=== PATIENT | female | born 1990 | race Caucasian/White ===

== ENCOUNTER → 2016-06-27 | Outpatient (CLI) | payer BC ==
[2016-06-27 15:07] LABS: BASO % 0.4 %; BASO ABS # 0.03 K/uL (0-0.2); COMPLETE YES; EOS % 1.7 %; HEMATOCRIT 38.3 % (37-47); IG% 0.1 %; LYMPH % 27.3 %; MEAN CELL VOLUME 81.3 fL (80-100); MEAN CORPUSCULAR HEMOGLOBIN 27.4 pg (25-34); MEAN CORPUSCULAR HGB CONC 33.7 g/dl (32-36); MEAN PLATELET VOLUME 11.1 fL (7.4-10.4); MONO % 6.9 %; NEUT % 63.6 %; PLATELET COUNT 304 K/uL (130-400); RED BLOOD COUNT 4.71 M/uL (4.2-5.4); WHITE BLOOD COUNT 7.69 K/uL (4.8-10.8)
[2016-06-27 15:16] LABS: BLOOD UREA NITROGEN 8 mg/dl (7-18); BUN/CREATININE RATIO 9.9 (10-20); CALCIUM 8.7 mg/dl (8.5-10.1); CARBON DIOXIDE 25 mmol/L (21-32); CHLORIDE 107 mmol/L (98-107); CREATININE 0.79 mg/dl (0.60-1.20); GLUCOSE 109 mg/dl (70-99); POTASSIUM 3.6 mmol/L (3.5-5.1); SODIUM 141 mmol/L (136-145)
== END | disposition home or self-care (01) ==
LOC: C.LABBC 10:27
PROVIDERS: ATTEND Orthopaedic Surgery Sports Medicine
DX: Z01.818 Encounter for other preprocedural examination (principal)

== ENCOUNTER → 2016-09-03 | Outpatient (CLI) | payer BC ==
[~2016-09-03] MED LIST: ATR25 PO; DIVA500T5 PO; NAPR1TAB9 PO; PROM12.57 PO; TRAM-10 PO; gabapentin PO
[2016-09-03 17:35] LABS: BASO % 0.3 %; BASO ABS # 0.03 K/uL (0-0.2); COMPLETE YES; EOS % 0.7 %; HEMATOCRIT 41.2 % (37-47); IG% 0.1 %; LYMPH % 25.9 %; LYMPH ABS # 2.45 K/uL (1.2-3.4); MEAN CELL VOLUME 83.7 fL (80-100); MEAN CORPUSCULAR HEMOGLOBIN 28.3 pg (25-34); MEAN CORPUSCULAR HGB CONC 33.7 g/dl (32-36); PLATELET COUNT 303 K/uL (130-400); RED BLOOD COUNT 4.92 M/uL (4.2-5.4); WHITE BLOOD COUNT 9.47 K/uL (4.8-10.8)
[2016-09-03 18:17] LABS: BLOOD UREA NITROGEN 5 mg/dl (7-18); CALCIUM 8.6 mg/dl (8.5-10.1); CARBON DIOXIDE 24 mmol/L (21-32); CHLORIDE 111 mmol/L (98-107); CREATININE 0.78 mg/dl (0.60-1.20); GLUCOSE 97 mg/dl (70-99); POTASSIUM 3.7 mmol/L (3.5-5.1); SODIUM 142 mmol/L (136-145)
== END | disposition home or self-care (01) ==
LOC: C.LAB1850 17:06
PROVIDERS: ATTEND Physician Assistant Medical
DX: R11.0 Nausea (principal); E01.0 Iodine-deficiency related diffuse (endemic) goiter; Z51.81 Encounter for therapeutic drug level monitoring; Z79.899 Other long term (current) drug therapy

== ENCOUNTER → 2016-09-04 | Outpatient (CLI) | payer BC ==
--- NOTE | 2016-09-04 12:46 | DIAGNOSTIC IMAGING REPORT ---
THYROID ULTRASOUND HISTORY: Enlarged thyroid gland. COMPARISON: None. FINDINGS: Right lobe: 5.4 x 1.4 x 2.4 cm. There are few small hypoechoic nodules/cysts measuring up to 4 mm. Left lobe: 4.4 x 1.0 x 1.5 cm. There are few small hypoechoic nodules/cysts measuring up to 4 mm. Isthmus: 2 mm in thickness. No nodules. IMPRESSION: A few small bilateral thyroid hypoechoic nodules/cysts measuring up to 4 mm. These do not meet sonographic criteria for biopsy. Electronically signed by: Anthony Knox M.D. 09/04/2016 12:44 PM Dictated Date/Time: 09/04/2016 12:43 PM
== END | disposition home or self-care (01) ==
LOC: C.ULTR 12:06
PROVIDERS: ATTEND Physician Assistant
DX: E01.0 Iodine-deficiency related diffuse (endemic) goiter (principal)

== ENCOUNTER → 2016-11-25 | Outpatient (CLI) | payer BC ==
--- NOTE | 2016-11-25 09:04 | DIAGNOSTIC IMAGING REPORT ---
RIGHT ANKLE MRI HISTORY: Right ankle pain. RT Ankle, achilles TENDONITIS Right TECHNIQUE: Multiplanar multisequence MRI of the right ankle was performed without contrast. COMPARISON STUDY: None. FINDINGS: Normal marrow signal intensity seen throughout the visualized osseous structures. No fracture or dislocation within the right ankle. The medial and lateral stabilizing ligaments are intact. The plantar fascia is within normal limits. The Achilles tendon, flexor tendons, and extensor tendons are normal in course, caliber, and signal intensity. There is question of mild thickening of the peroneus longus tendon at the tip of the lateral malleolus. This is best seen on axial image 23. This may represent a mild chronic tendinopathy. No abnormal signal. Trace subcutaneous edema along the lateral malleolus. The sinus tarsi appears intact. Cartilage spaces are maintained. No significant joint effusion. IMPRESSION: 1. Mild thickening of the peroneus longus tendon. This likely represents a mild chronic tendinopathy. 2. Normal Achilles tendon. 3. No fracture or dislocation. Electronically signed by: Anthony Knox M.D. 11/25/2016 9:03 AM Dictated Date/Time: 11/25/2016 8:56 AM
== END | disposition home or self-care (01) ==
LOC: C.MRI 08:21
PROVIDERS: ATTEND Podiatrist
DX: M76.61 Achilles tendinitis, right leg (principal)

== ENCOUNTER → 2016-12-29 | Outpatient (CLI) | payer BC ==
--- NOTE | 2016-12-29 16:05 | DIAGNOSTIC IMAGING REPORT ---
THREE-PHASE BONE SCAN OF THE FEET CLINICAL HISTORY: Right foot pain and. Evaluate for evidence of reflex sympathetic dystrophy. COMPARISON STUDY: MRI of the right ankle November 25, 2016. TECHNIQUE: 26.1 mCi of technetium 90 9M MDP was injected IV at 12:20 PM on December 29, 2016. Blood flow images were obtained medially following injection. Blood pool and delayed phase imaging was performed. FINDINGS: There is no evidence of hyperemia on this examination. Uptake within the ankles and feet is symmetric. No areas of abnormal radiotracer uptake are identified on this examination with the exception of mild uptake projecting over the right first metatarsophalangeal joint. There is no evidence for reflex sympathetic dystrophy. IMPRESSION: 1. No scintigraphic evidence for reflex sympathetic dystrophy. 2. Minimal radiotracer uptake projecting of the right first metatarsophalangeal joint which may be degenerative. Otherwise, unremarkable three-phase bone scan with no hyperemia. Electronically signed by: Gary Vidales M.D. 12/29/2016 4:03 PM Dictated Date/Time: 12/29/2016 4:00 PM
== END | disposition home or self-care (01) ==
LOC: C.NUCL 12:03
PROVIDERS: ATTEND Physical Medicine & Rehabilitation
DX: M79.671 Pain in right foot (principal)

== ENCOUNTER → 2017-01-01 | Outpatient (CLI) | payer BC ==
[2017-01-01 10:56] LABS: BASO % 0.4 %; BASO ABS # 0.03 K/uL (0-0.2); COMPLETE YES; EOS % 1.4 %; HEMATOCRIT 42.4 % (37-47); IG% 0.1 %; LYMPH ABS # 2.22 K/uL (1.2-3.4); MEAN CELL VOLUME 86.7 fL (80-100); MEAN CORPUSCULAR HEMOGLOBIN 27.6 pg (25-34); MEAN CORPUSCULAR HGB CONC 31.8 g/dl (32-36); MEAN PLATELET VOLUME 11.1 fL (7.4-10.4); MONO % 6.6 %; NEUT % 59.5 %; PLATELET COUNT 306 K/uL (130-400); RED BLOOD COUNT 4.89 M/uL (4.2-5.4); WHITE BLOOD COUNT 6.94 K/uL (4.8-10.8)
[2017-01-01 11:10] LABS: ESTIMATED AVERAGE GLUCOSE 97 mg/dl; HA1C FLAG Normal (Normal)
[2017-01-01 11:21] LABS: ALT/SGPT 13 U/L (12-78); BLOOD UREA NITROGEN 7 mg/dl (7-18); BUN/CREATININE RATIO 8.3 (10-20); CALCIUM 9.3 mg/dl (8.5-10.1); CARBON DIOXIDE 25 mmol/L (21-32); CHLORIDE 106 mmol/L (98-107); CHOLESTEROL 173 mg/dl (0-200); CREATININE 0.78 mg/dl (0.60-1.20); GLUCOSE 96 mg/dl (70-99); POTASSIUM 3.5 mmol/L (3.5-5.1); SODIUM 139 mmol/L (136-145)
[2017-01-01 11:30] LABS: ALB/GLOB RATIO 1.3 (0.9-2); ALKALINE PHOSPHATASE 54 U/L (45-117); AST/SGOT 13 U/L (15-37); CHOLESTEROL/HDL RATIO 2.4; HDL CHOLESTEROL 71 mg/dl; LDL CHOLESTEROL CALCULATED 81 mg/dl; TRIGLYCERIDES 107 mg/dl (0-150); VERY LOW DENSITY LIPOPROT CALC 21 mg/dl
== END | disposition home or self-care (01) ==
LOC: C.LABBC 08:34
PROVIDERS: ATTEND Physician Assistant
DX: Z51.81 Encounter for therapeutic drug level monitoring (principal); Z79.899 Other long term (current) drug therapy

== ENCOUNTER → 2017-05-22 | Outpatient (CLI) | payer BC ==
[2017-05-22 11:00] LABS: HEMATOCRIT 38.3 % (37-47); HEMOGLOBIN 12.9 g/dL (12.0-16.0); MEAN CELL VOLUME 86.1 fL (80-100); MEAN CORPUSCULAR HGB CONC 33.7 g/dl (32-36); PLATELET COUNT 220 K/uL (130-400); RED CELL DISTRIBUTION WIDTH CV 13.1 % (11.5-14.5); RED CELL DISTRIBUTION WIDTH SD 41.3 fL (36.4-46.3); WHITE BLOOD COUNT 8.32 K/uL (4.8-10.8)
[2017-05-22 11:13] LABS: ALBUMIN 3.5 gm/dl (3.4-5.0); ALT/SGPT 15 U/L (12-78); AST/SGOT 11 U/L (15-37); BLOOD UREA NITROGEN 13 mg/dl (7-18); CALCIUM 8.4 mg/dl (8.5-10.1); CARBON DIOXIDE 27 mmol/L (21-32); CREATININE 0.62 mg/dl (0.60-1.20); GLUCOSE 92 mg/dl (70-99); POTASSIUM 3.5 mmol/L (3.5-5.1); SODIUM 137 mmol/L (136-145)
[2017-05-22 11:15] LABS: ALKALINE PHOSPHATASE 39 U/L (45-117); TOTAL PROTEIN 6.2 gm/dl (6.4-8.2)
== END | disposition home or self-care (01) ==
LOC: C.LABBC 09:07
PROVIDERS: ATTEND Physician Assistant
DX: Z51.81 Encounter for therapeutic drug level monitoring (principal); Z79.899 Other long term (current) drug therapy

== ENCOUNTER → 2017-06-18 | Outpatient (CLI) | payer BC ==
--- NOTE | 2017-06-18 11:42 | DIAGNOSTIC IMAGING REPORT ---
CHEST 2 VIEWS ROUTINE HISTORY: Atypical chest pain. COMPARISON: None. FINDINGS: The lungs are clear. The heart is normal in size. No pleural effusions. No pneumothorax. No acute rib fractures. Minimal dextroscoliosis of the thoracic spine. IMPRESSION: No acute process. Electronically signed by: Anthony Knox M.D. 06/18/2017 11:41 AM Dictated Date/Time: 06/18/2017 11:39 AM
[2017-06-18 13:07] LABS: BASO % 0.5 %; BASO ABS # 0.03 K/uL (0-0.2); EOS % 0.8 %; EOS ABS # 0.05 K/uL (0-0.5); HEMATOCRIT 41.6 % (37-47); HEMOGLOBIN 13.8 g/dL (12.0-16.0); IG# 0.01 K/uL (0.00-0.02); LYMPH % 26.3 %; LYMPH ABS # 1.61 K/uL (1.2-3.4); MEAN CELL VOLUME 85.6 fL (80-100); MEAN CORPUSCULAR HEMOGLOBIN 28.4 pg (25-34); MEAN CORPUSCULAR HGB CONC 33.2 g/dl (32-36); MEAN PLATELET VOLUME 11.3 fL (7.4-10.4); MONO % 11.9 %; MONO ABS # 0.73 K/uL (0.11-0.59); NEUT % 60.3 %; NEUT ABS # 3.69 K/uL (1.4-6.5); PLATELET COUNT 225 K/uL (130-400); RED CELL DISTRIBUTION WIDTH CV 13.1 % (11.5-14.5); RED CELL DISTRIBUTION WIDTH SD 40.9 fL (36.4-46.3); WHITE BLOOD COUNT 6.12 K/uL (4.8-10.8)
[2017-06-18 16:47] LABS: ALBUMIN 3.5 gm/dl (3.4-5.0); ALT/SGPT 21 U/L (12-78); AST/SGOT 15 U/L (15-37); BLOOD UREA NITROGEN 13 mg/dl (7-18); CALCIUM 8.9 mg/dl (8.5-10.1); CARBON DIOXIDE 26 mmol/L (21-32); CREATININE 0.69 mg/dl (0.60-1.20); GLUCOSE 99 mg/dl (70-99); POTASSIUM 3.8 mmol/L (3.5-5.1); SODIUM 138 mmol/L (136-145)
[2017-06-18 16:50] LABS: ALKALINE PHOSPHATASE 52 U/L (45-117); TOTAL PROTEIN 6.8 gm/dl (6.4-8.2)
== END | disposition home or self-care (01) ==
LOC: C.RADBC 10:48
PROVIDERS: ATTEND Physician Assistant Medical
DX: Z79.899 Other long term (current) drug therapy (principal); R07.9 Chest pain, unspecified; R53.83 Other fatigue

== ENCOUNTER → 2017-07-29 | Outpatient (CLI) | payer BC ==
--- NOTE | 2017-07-29 09:46 | DIAGNOSTIC IMAGING REPORT ---
R HAND MIN 3 VIEWS ROUTINE HISTORY: 26 years-old Female M25.541 Joint pain in fingers of right [id number] acute right hand pain, most pronounced within the fourth and fifth metacarpals COMPARISON: None available TECHNIQUE: 3 views of the right hand FINDINGS: No acute fracture, dislocation or significant degenerative changes. Soft tissues are unremarkable without opaque foreign body. IMPRESSION: No acute bony abnormality. The above report was generated using voice recognition software. It may contain grammatical, syntax or spelling errors. Electronically signed by: Karthikeyan Calderón M.D. 07/29/2017 9:44 AM Dictated Date/Time: 07/29/2017 9:43 AM
== END | disposition home or self-care (01) ==
LOC: C.RAD1850 09:33
PROVIDERS: ATTEND Internal Medicine
DX: M25.541 Pain in joints of right hand (principal)

== ENCOUNTER → 2017-11-19 | Outpatient (CLI) | payer BC ==
[~2017-11-19] MED LIST changes: +DIVA-36 PO; -DIVA500T5 PO
--- NOTE | 2017-11-19 16:26 | DIAGNOSTIC IMAGING REPORT ---
L FINGER(S) MIN 2 VIEWS ROUTINE CLINICAL HISTORY: M79.645 Pain of finger of left [id number] COMPARISON: None. DISCUSSION: The bones and joint spaces appear intact. There is no evidence of fracture, dislocation or bony disease. There is no evidence for soft tissue swelling. IMPRESSION: Negative study. The above report was generated using voice recognition software. It may contain grammatical, syntax or spelling errors. Electronically signed by: Richard Larsen M.D. 11/19/2017 4:25 PM Dictated Date/Time: 11/19/2017 4:25 PM
== END | disposition home or self-care (01) ==
LOC: C.RAD1850 16:05
PROVIDERS: ATTEND Internal Medicine
DX: M79.645 Pain in left finger(s) (principal)